=== PATIENT | female | born 1985 | race Caucasian/White ===

== ENCOUNTER 2017-12-17 14:14 | Emergency (ER) | payer SELFPAY ==
[~2017-12-17] VITALS: Ht 162.6 cm; Wt 59.0 kg
--- NOTE | 2017-12-17 14:16 | NUR ---
PT BIBA BLS TO BED 5
[2017-12-17 14:25] VITALS: BP 125/71
--- NOTE | 2017-12-17 15:20 | NUR ---
PATIENT PRESENTS TO ED WITH COMPLAINTS OF PALPITATIONS. PATIENT STATES IT STARTED AT WORK TODAY. PATIENT DENIES HX OF ANXIETY AND CARDIAC DISORDERS. DENIES N/V/D; SKIN IS PINK/WARM/DRY; AAOX4 WITH EVEN AND STEADY GAIT; LUNGS CLEAR BL; HR EVEN AND REGULAR; PT DENIES ANY FEVER, CP, SOB, OR COUGH AT THIS TIME; PATIENT STATES PAIN OF 0/10 AT THIS TIME; VSS; PATIENT POSITIONED FOR COMFORT; HOB ELEVATED; BEDRAILS UP X1; BED DOWN. ER MD MADE AWARE OF PT STATUS.
[2017-12-17] MEDS ORDERED: ALPRAZolam 0.5 MG TAB PO ONE (15:25)
[2017-12-17 15:40] LABS: BARBITURATE, URINE NEG. ng/ml (NEG <=200); BENZODIAZEPINE, URINE NEG. ng/mL (NEG <=200); CANNABINOID, URINE NEG. ng/mL (NEG <=50); COCAINE, URINE NEG. ng/mL (NEG <=300); OPIATE, URINE NEG. ng/mL (NEG <=2000); PHENCYCLIDINE SCREEN,URINE NEG. ng/mL (NEG <=25)
--- NOTE | 2017-12-17 16:10 | NUR ---
Patient discharged with v/s stable. Written and verbal after care instructions given and explained. Patient alert, oriented and verbalized understanding of instructions. Ambulatory with steady gait. All questions addressed prior to discharge. ID band removed. Patient advised to follow up with PMD. Rx of VISTARIL given. Patient educated on indication of medication including possible reaction and side effects. Opportunity to ask questions provided and answered.
[2017-12-17 16:13] VITALS: BP 125/71
== END 2017-12-17 16:10 | disposition home or self-care (01) ==
LOC: MED 14:14
DX: F41.0 Panic disorder [episodic paroxysmal anxiety] (principal); R06.4 Hyperventilation; R20.2 Paresthesia of skin
CPT/HCPCS: 80305; 81025; 99283; 99284